=== PATIENT | male | born 1965 | race African-American/Black ===

== ENCOUNTER 2017-04-28 04:23 | Emergency (ER) | payer MEDICAID ==
[~2017-04-28] VITALS: Ht 175.3 cm; Wt 83.0 kg
[2017-04-28 04:36] VITALS: BP 130/85
== END 2017-04-28 05:28 | disposition home or self-care (01) ==
LOC: ER 04:23
DX: R07.89 Other chest pain (principal); F17.200 Nicotine dependence, unspecified, uncomplicated; F12.10 Cannabis abuse, uncomplicated
CPT/HCPCS: 99282; 99283

== ENCOUNTER 2017-09-08 19:19 | Emergency (ER) | payer MEDICAID ==
[~2017-09-08] VITALS: Ht 175.3 cm; Wt 82.0 kg
[2017-09-08 20:23] VITALS: BP 150/90
== END 2017-09-09 00:38 | disposition left against medical advice (07) ==
LOC: ER 19:19
DX: Z53.21 Procedure and treatment not carried out due to patient leaving prior to being seen by health care provider (principal)
CPT/HCPCS: 93005